=== PATIENT | male | born 1975 | race Caucasian/White ===

== ENCOUNTER 2017-02-13 13:24 | Inpatient (IN) | payer SELFPAY ==
[~2017-02-13] VITALS: Ht 182.9 cm; Wt 143.1 kg
[2017-02-13 14:19] LABS: Basophils # (auto) 0.1 uL; Basophils % (auto) 0.9 % (0.0-2.0); Eosinophils # (auto) 0.3 uL; Eosinophils % (auto) 2.5 % (0.0-7.0); Hematocrit 43.7 % (41.0-53.0); Lymphocytes # (auto) 3.1 uL; Lymphocytes % (auto) 27.9 % (10.0-50.0); Mean Corpuscular Hemoglobin 26.2 pg (28.0-32.0); Mean Corpuscular Volume 81.9 fL (80.0-100.0); Monocytes # (auto) 0.9 uL; Monocytes % (auto) 8.1 % (0.0-12.0); Neutrophils # (auto) 6.6 uL; Neutrophils % (auto) 60.6 % (37.0-80.0); Nucleated Red Blood Cells % 0.1 %; Platelet Count (auto) 298 10^3/uL (140-450); Red Cell Distribution Width 16.3 % (11.8-14.3)
[2017-02-13 14:40] LABS: Albumin 3.4 g/dL (3.4-5.0); BUN/Creatinine Ratio 19.1; Bilirubin, Total 0.8 mg/dL (0.2-1.0); Calcium 8.9 mg/dL (8.5-10.1); Potassium 4.7 mmol/L (3.5-5.1); Total Protein 7.1 g/dL (6.4-8.2)
[2017-02-13] MEDS ORDERED: FUROSEMIDE 20 MG/2 ML VIAL IV ONE (15:45)
[2017-02-13] MEDS ORDERED: ONDANSETRON HCL 4 MG/2 ML VIAL IV ONE (15:45)
[2017-02-13] MEDS ORDERED: MORPHINE SULF INJ 2 MG/ML SYRINGE 1ML IV ONE (15:45)
[2017-02-13] MEDS ORDERED: ASPirin 81 mg TAB PO ONE (15:45)
[2017-02-13 15:54] LABS: B-Type Natriuretic Peptide 584.03 pg/mL (0-100)
[2017-02-13 16:00] LABS: Temperature: 23.1 C (20.0-25.0)
[2017-02-13] MEDS ORDERED: LACTULOSE 20Gm/30ML SOLN PO PRN (16:00)
[2017-02-13] MEDS ORDERED: NITROGLYCERIN 0.4 MG SL TAB SL PRN (16:00)
[2017-02-13] MEDS ORDERED: HYDROcodone-ACET 5/325MG TAB PO PRN (16:00)
[2017-02-13] MEDS ORDERED: PROMETHAZINE HCL 25 MG/ML 1ML IV PRN (16:00)
[2017-02-13] MEDS ORDERED: MORPHINE SULF INJ 2 MG/ML SYRINGE 1ML IV PRN ×2 (16:00)
[2017-02-13] MEDS ORDERED: ACETAMINOPHEN 500 MG TAB PO PRN (16:00)
[2017-02-13] MEDS ORDERED: ENALAPRIL MALEATE 2.5 MG TAB PO ONE (16:15)
[2017-02-13] MEDS ORDERED: ENOXAPARIN SOD 40 MG/0.4 ML SYRINGE SC SCH (17:00)
[2017-02-13 17:49] VITALS: BP 111/76
[2017-02-13] MEDS ORDERED: diphenhdrAMINE HCL 25 MG CAP PO ONE (18:00)
[2017-02-13] MEDS ORDERED: CEPH500C PO (18:46)
[2017-02-13] MEDS ORDERED: THIA100T11 PO (18:46)
[2017-02-13] MEDS ORDERED: ZOLP5TAB5 PO (18:47)
[2017-02-13] MEDS ORDERED: VALS320T15 PO (18:49)
[2017-02-13] MEDS ORDERED: FOLI1TAB6 PO (18:49)
[2017-02-13] MEDS ORDERED: FURO40TA4 PO (18:49)
[2017-02-13 18:51] VITALS: BP 111/76
[2017-02-13 20:30] VITALS: BP 97/76
[2017-02-13] MEDS: CARVEDILOL 3.125 MG TAB PO SCH (21:57)
[2017-02-13] MEDS: SODIUM CHLOR 0.9% PF (SALINE LOCK) 10ML VIAL IV SCH (21:57)
[2017-02-13 22:00] VITALS: BP 97/76
[2017-02-14] VITALS (9 sets, daily range): BP systolic 89–113; BP diastolic 55–73
[2017-02-14 06:11] LABS: Basophils # (auto) 0.1 uL; Basophils % (auto) 0.7 % (0.0-2.0); Eosinophils # (auto) 0.4 uL; Eosinophils % (auto) 3.9 % (0.0-7.0); Hematocrit 41.3 % (41.0-53.0); Hemoglobin 13.2 g/dL (13.5-17.5); Lymphocytes # (auto) 3.7 uL; Lymphocytes % (auto) 33.3 % (10.0-50.0); Mean Corpuscular Hemoglobin 26.1 pg (28.0-32.0); Mean Corpuscular Volume 81.6 fL (80.0-100.0); Monocytes % (auto) 8.6 % (0.0-12.0); Neutrophils % (auto) 53.5 % (37.0-80.0); Platelet Count (auto) 296 10^3/uL (140-450); Red Cell Distribution Width 16.5 % (11.8-14.3); White Blood Cell 11.2 10^3/uL (4.4-10.8)
[2017-02-14] MEDS: LORazepam 0.5 MG TAB PO PRN ×2 (06:17→21:56)
[2017-02-14] MEDS: SODIUM CHLOR 0.9% PF (SALINE LOCK) 10ML VIAL IV SCH ×3 (06:19→22:02)
[2017-02-14 06:46] LABS: Albumin 3.1 g/dL (3.4-5.0); BUN/Creatinine Ratio 20.3; Bilirubin, Total 0.9 mg/dL (0.2-1.0); Calcium 8.5 mg/dL (8.5-10.1); Potassium 4.6 mmol/L (3.5-5.1); Total Protein 6.6 g/dL (6.4-8.2)
[2017-02-14 06:53] LABS: B-Type Natriuretic Peptide 419.12 pg/mL (0-100)
[2017-02-14 07:06] LABS: Temperature: 23.9 C (20.0-25.0)
[2017-02-14] MEDS: POTASSIUM CHL 20 Meq TABLET PO SCH (09:29)
[2017-02-14] MEDS: PANTOPRAZOLE 40 MG TAB PO SCH (09:30)
[2017-02-14] MEDS: CARVEDILOL 3.125 MG TAB PO SCH ×2 (09:31→22:00)
[2017-02-14] MEDS: ASPirin 81 mg TAB PO SCH (09:32)
[2017-02-14] MEDS ORDERED: ENOXAPARIN SOD 40 MG/0.4 ML SYRINGE SC SCH ×2 (10:00)
[2017-02-14] MEDS ORDERED: NITROGLYCERIN 0.2MG/HR TOPICAL PATCH TD SCH (10:00)
[2017-02-14] MEDS ORDERED: ENALAPRIL MALEATE 2.5 MG TAB PO SCH (10:00)
[2017-02-14] MEDS ORDERED: FUROSEMIDE 40 MG/4 ML VIAL IV SCH (10:00)
[2017-02-14] MEDS: FUROSEMIDE 40 MG/4 ML VIAL IV SCH ×3 (11:04→21:56)
[2017-02-14] MEDS: SPIRONOLACTONE 25 MG TAB PO SCH (11:04)
[2017-02-14] MEDS: LISINOPRIL 5 MG TAB PO SCH (11:04)
[2017-02-14] MEDS ORDERED: IOHEXOL 350 MG/ML 100ML IJ ONE ×2 (15:49→16:24)
[2017-02-14] MEDS ORDERED: LORazepam 2MG/ML-1ML VIAL IV PRN (17:15)
[2017-02-14] MEDS ORDERED: APIXABAN 5 MG TAB PO SCH ×2 (18:39)
[2017-02-15] VITALS (7 sets, daily range): BP systolic 84–109; BP diastolic 56–76
[2017-02-15] MEDS ORDERED: diphenhdrAMINE HCL 25 MG CAP PO ONE (00:15)
[2017-02-15 06:30] LABS: Basophils # (auto) 0.1 uL; Eosinophils # (auto) 0.4 uL; Hemoglobin 13.1 g/dL (13.5-17.5); Mean Corpuscular Volume 81.3 fL (80.0-100.0); White Blood Cell 10.4 10^3/uL (4.4-10.8)
[2017-02-15 06:32] LABS: Basophils % (auto) 0.7 % (0.0-2.0); Eosinophils % (auto) 3.6 % (0.0-7.0); Hematocrit 40.5 % (41.0-53.0); Lymphocytes # (auto) 3.4 uL; Lymphocytes % (auto) 32.3 % (10.0-50.0); Mean Corpuscular Hemoglobin 26.2 pg (28.0-32.0); Mean Corpuscular Hgb Conc. 32.3 g/dL (32.0-36.0); Mean Platelet Volume 7.9 fL (6.9-10.8); Monocytes # (auto) 0.9 uL; Monocytes % (auto) 8.3 % (0.0-12.0); Neutrophils # (auto) 5.7 uL; Neutrophils % (auto) 55.1 % (37.0-80.0); Nucleated Red Blood Cells % 0.1 %; Platelet Count (auto) 315 10^3/uL (140-450); Red Cell Distribution Width 16.2 % (11.8-14.3)
[2017-02-15] MEDS: FUROSEMIDE 40 MG/4 ML VIAL IV SCH ×2 (06:33→17:49)
[2017-02-15] MEDS: SODIUM CHLOR 0.9% PF (SALINE LOCK) 10ML VIAL IV SCH ×3 (06:33→22:00)
[2017-02-15 07:03] LABS: BUN/Creatinine Ratio 19.2; Calcium 8.3 mg/dL (8.5-10.1); Magnesium 2.3 mg/dL (1.6-2.6); Potassium 4.4 mmol/L (3.5-5.1)
[2017-02-15] MEDS: LISINOPRIL 5 MG TAB PO SCH (10:00)
[2017-02-15] MEDS: CARVEDILOL 3.125 MG TAB PO SCH ×2 (10:00→21:55)
[2017-02-15] MEDS: SPIRONOLACTONE 25 MG TAB PO SCH (10:00)
[2017-02-15] MEDS: ASPirin 81 mg TAB PO SCH (10:13)
[2017-02-15] MEDS: PANTOPRAZOLE 40 MG TAB PO SCH (10:13)
[2017-02-15] MEDS: POTASSIUM CHL 20 Meq TABLET PO SCH (10:14)
[2017-02-15] MEDS: APIXABAN 5 MG TAB PO SCH ×2 (10:14→21:54)
[2017-02-15] MEDS ORDERED: NICOTINE 21MG/24 HR TOPICAL PATCH TD SCH (10:30)
[2017-02-15] MEDS: NICOTINE 7MG/24HR TOPICAL PATCH TD SCH (10:44)
[2017-02-15] MEDS: diphenhdrAMINE HCL 25 MG CAP PO PRN (10:45)
[2017-02-15 11:40] LABS: Urine RBC None Seen /hpf (0 - 3)
[2017-02-15 11:58] LABS: Urine Bilirubin Negative (Negative); Urine Blood Negative /uL (Negative); Urine Color Yellow (Yellow); Urine Glucose Normal (Normal); Urine Ketone Negative (Negative); Urine Nitrite Negative (Negative); Urine Urobilinogen Normal (Negative)
[2017-02-15] MEDS: LORazepam 0.5 MG TAB PO PRN (21:54)
[2017-02-16] MEDS: diphenhdrAMINE HCL 25 MG CAP PO PRN (00:46)
[2017-02-16 05:00] VITALS: BP 104/60
[2017-02-16] MEDS: FUROSEMIDE 40 MG/4 ML VIAL IV SCH (05:20)
[2017-02-16] MEDS: LORazepam 0.5 MG TAB PO PRN ×2 (05:20→22:07)
[2017-02-16] MEDS: SODIUM CHLOR 0.9% PF (SALINE LOCK) 10ML VIAL IV SCH ×3 (05:42→22:08)
[2017-02-16 06:55] LABS: BUN/Creatinine Ratio 21.1; Calcium 8.6 mg/dL (8.5-10.1); Potassium 4.7 mmol/L (3.5-5.1)
[2017-02-16 08:00] VITALS: BP 117/88
[2017-02-16] MEDS: NICOTINE 7MG/24HR TOPICAL PATCH TD SCH ×2 (10:00→10:18)
[2017-02-16] MEDS: ASPirin 81 mg TAB PO SCH (10:18)
[2017-02-16] MEDS: PANTOPRAZOLE 40 MG TAB PO SCH (10:18)
[2017-02-16] MEDS: SPIRONOLACTONE 25 MG TAB PO SCH (10:19)
[2017-02-16] MEDS: APIXABAN 5 MG TAB PO SCH ×2 (10:19→22:06)
[2017-02-16] MEDS: LISINOPRIL 5 MG TAB PO SCH (10:19)
[2017-02-16] MEDS: POTASSIUM CHL 20 Meq TABLET PO SCH (10:20)
[2017-02-16] MEDS: CARVEDILOL 3.125 MG TAB PO SCH ×2 (10:20→22:06)
[2017-02-16 13:00] VITALS: BP 114/80
[2017-02-16 17:00] VITALS: BP 122/85
[2017-02-16] MEDS: BUMETANIDE (0.25MG/ML) 4 ML VIAL IV SCH (18:21)
[2017-02-16 22:12] VITALS: BP 127/84
[2017-02-17] MEDS: TEMAZEPAM 15 MG CAP PO PRN (00:34)
[2017-02-17 05:00] VITALS: BP 129/82
[2017-02-17] MEDS: BUMETANIDE (0.25MG/ML) 4 ML VIAL IV SCH ×2 (06:05→18:41)
[2017-02-17] MEDS: SODIUM CHLOR 0.9% PF (SALINE LOCK) 10ML VIAL IV SCH ×3 (06:05→21:26)
[2017-02-17] MEDS: LORazepam 0.5 MG TAB PO PRN ×2 (06:16→21:26)
[2017-02-17 06:58] LABS: BUN/Creatinine Ratio 21.1; Calcium 8.6 mg/dL (8.5-10.1); Potassium 4.5 mmol/L (3.5-5.1)
[2017-02-17] MEDS: NICOTINE 7MG/24HR TOPICAL PATCH TD SCH (10:00)
[2017-02-17] MEDS: POTASSIUM CHL 20 Meq TABLET PO SCH (10:14)
[2017-02-17] MEDS: PANTOPRAZOLE 40 MG TAB PO SCH (10:14)
[2017-02-17] MEDS: APIXABAN 5 MG TAB PO SCH ×2 (10:14→21:26)
[2017-02-17] MEDS: ASPirin 81 mg TAB PO SCH (10:15)
[2017-02-17] MEDS: LISINOPRIL 5 MG TAB PO SCH (10:16)
[2017-02-17] MEDS: SPIRONOLACTONE 25 MG TAB PO SCH (10:16)
[2017-02-17] MEDS: CARVEDILOL 3.125 MG TAB PO SCH ×2 (10:16→21:25)
[2017-02-17] MEDS: METOLAZONE 5 MG TAB PO SCH (10:17)
[2017-02-17 11:15] VITALS: BP 123/73
[2017-02-17 18:00] VITALS: BP 119/80
[2017-02-17 20:00] VITALS: BP 116/76
[2017-02-17 22:00] VITALS: BP 116/76
[2017-02-18] MEDS: TEMAZEPAM 15 MG CAP PO PRN (00:58)
[2017-02-18] MEDS: LORazepam 0.5 MG TAB PO PRN (04:34)
[2017-02-18 05:00] VITALS: BP 139/84
[2017-02-18] MEDS: BUMETANIDE (0.25MG/ML) 4 ML VIAL IV SCH (06:44)
[2017-02-18] MEDS: SODIUM CHLOR 0.9% PF (SALINE LOCK) 10ML VIAL IV SCH (06:44)
[2017-02-18 07:05] LABS: BUN/Creatinine Ratio 22.8; Calcium 8.5 mg/dL (8.5-10.1)
[2017-02-18 07:30] VITALS: BP 139/84
[2017-02-18] MEDS: METOLAZONE 5 MG TAB PO SCH (08:57)
[2017-02-18] MEDS: ASPirin 81 mg TAB PO SCH (08:57)
[2017-02-18] MEDS: PANTOPRAZOLE 40 MG TAB PO SCH (08:58)
[2017-02-18] MEDS: POTASSIUM CHL 20 Meq TABLET PO SCH (08:58)
[2017-02-18] MEDS: LISINOPRIL 5 MG TAB PO SCH (08:58)
[2017-02-18] MEDS: CARVEDILOL 3.125 MG TAB PO SCH (08:59)
[2017-02-18] MEDS: SPIRONOLACTONE 25 MG TAB PO SCH (08:59)
[2017-02-18] MEDS: APIXABAN 5 MG TAB PO SCH (08:59)
[2017-02-18] MEDS: NICOTINE 7MG/24HR TOPICAL PATCH TD SCH (09:00)
[2017-02-18] MEDS ORDERED: PANT40T PO (10:42)
[2017-02-18] MEDS ORDERED: CAR3125T PO (10:42)
[2017-02-18] MEDS ORDERED: POTA20TA53 PO (10:42)
[2017-02-18] MEDS ORDERED: LISI-275 PO (10:42)
[2017-02-18] MEDS ORDERED: SPIR25TA88 PO (10:42)
[2017-02-18] MEDS ORDERED: METO5TAB56 PO (10:42)
[2017-02-18] MEDS ORDERED: BUME2TAB3 PO (10:42)
[2017-02-18 12:30] VITALS: BP 139/84
[2017-02-22] MEDS ORDERED: APIXABAN 5 MG TAB PO SCH (10:00)
== END 2017-02-18 18:03 | disposition home or self-care (01) | DRG 291 ==
LOC: ER 13:24 → TELE 13:25 → TELE-EAST 17:34 → EAST 02-17 00:16
PROVIDERS: ADMIT Internal Medicine; ATTEND Internal Medicine
DX: I11.0 Hypertensive heart disease with heart failure (principal); I26.99 Other pulmonary embolism without acute cor pulmonale; Z68.41 Body mass index [BMI] 40.0-44.9, adult; R18.8 Other ascites; I71.2 Thoracic aortic aneurysm, without rupture; E66.01 Morbid (severe) obesity due to excess calories; W19.XXXA Unspecified fall, initial encounter; I42.9 Cardiomyopathy, unspecified; I50.43 Acute on chronic combined systolic (congestive) and diastolic (congestive) heart failure; D72.829 Elevated white blood cell count, unspecified; F17.210 Nicotine dependence, cigarettes, uncomplicated; S00.12XA Contusion of left eyelid and periocular area, initial encounter; Y93.89 Activity, other specified; Y92.89 Other specified places as the place of occurrence of the external cause; I25.2 Old myocardial infarction; Z82.49 Family history of ischemic heart disease and other diseases of the circulatory system; Z79.01 Long term (current) use of anticoagulants; Z91.14 Patient's other noncompliance with medication regimen; Z91.19 Patient's noncompliance with other medical treatment and regimen; Z71.6 Tobacco abuse counseling
CPT/HCPCS: 36415; 70450; 71020; 71275; 72125; 76700; 80048; 80053; 80061; 80307; 81001; 82550; 82962; 83735; 83880; 84443; 84484; 85025; 85379; 87081; 93005; 93306; 93970; 95819; 96374; 96375; 99291; J2405